=== PATIENT | male | born 1970 | race Caucasian/White ===

== ENCOUNTER 2022-11-03 09:51 | Outpatient (CLI) | payer OTHER, SELFPAY ==
--- NOTE | 2022-11-24 18:52 | WPDHOMESLEEP ---
Sleep Study - Home Unattended Date of Study: 11/03/22 Ordering Provider: Luis Carlos Funez PA-C Interpreting Provider: Verna Yeung, DO Home Sleep Study Type: Watch PAT Height: 1.91 m Weight: 149.685 kg Body Mass Index: 41.2 Neck Circumference (inches): 18.25 [place]: 13 Reason for Sleep Study Daytime hypersomnia, witnessed apneas and loud snoring. Sleep History The patient is a 51-year-old male with hypertension that had a sleep study ordered by his primary care for evaluation of sleep apnea. The patient is occasionally from sleep short of breath. He rarely awakens at night with heartburn, belching or cough. He constantly snores and is frequently loud enough that others complain. He occasionally has trouble sleeping when he has cold. He occasionally wakes up gasping for air throughout the night. He frequently has breathing problems at night observed by himself or others. He occasionally sweats excessively at night. He denies having heart palpitations or irregular heartbeats during the night. He occasionally falls asleep during the day and rarely falls asleep while driving. He denies sleep paralysis and cataplexy. the patient denies having trouble at school or work due to sleepiness. He rarely experiences vivid dreamlike scenes upon awakening or falling asleep. He denies feeling afraid of going to sleep. He rarely has nightmares. He rarely remembers his dreams. He rarely has thoughts racing through his mind. He denies feeling sad or depressed. He rarely has anxiety. He occasionally has muscular tension. He occasionally notices parts of his body jerk. He rarely kicks during the night. He occasionally has crawling and aching feelings in his legs and occasionally has leg pain during the night. He denies grinding his teeth during sleep denies awakening with morning jaw pain. He is rarely bothered by pain during the day and rarely awakened by pain during the night. He occasionally wakes up feeling stiff in the morning. He denies waking up with sore achy muscles. He rarely wakes up with pain in the neck, spine or other joints. He goes to bed between 10-11 p.m. on both weekdays and weekends. He is able to fall asleep within 15 minutes. He wakes up 2-3 times throughout the night to urinate. He is able to fall back asleep within a few minutes. He wakes up between 5-6 a.m. on weekdays and between 7-8 a.m. on the weekends. He typically gets 47 hours of sleep per night. He will stay in bed for 30 minutes to an hour after waking up in the morning. He currently lives with his and daughter. He does not consume any caffeinated beverages within 2 hours of bedtime. He does not engage in physical exercise before bedtime. He denies watching television before falling asleep. He denies taking naps in the afternoon or the evening. He drinks 2 cups of caffeinated beverage per day. He will drink 1 alcoholic beverage at most per week. He denies tobacco use. [facility] Past Medical History Medical History Essential hypertension Social History Social History Smoking status: Never smoker Second hand tobacco smoke exposure: No Alcohol intake: never Substance use: never Lack of Transportation: No Lack of Food: Never True Current Housing: I Have Housing Concerned About Future Housing: No Difficulty Paying Gas/Electric Bills: No Difficulty Paying for Meds: No Currently Unemployed: No Education: Bachelor's Degree Difficulty w/ Childcare or Family Care: No Medications Home Medications Medication Instructions Recorded Confirmed Type lisinopril 20 2 tablet PO DAILY #180 tabs 05/24/22 10/12/22 Rx mg-hydrochlorothiazide 12.5 mg tablet fluticasone 100 mcg-salmeterol 50 1 inh inhalation Q12H #60 ea 11/07/22 Rx mcg/dose blistr powdr for inhalation (Advair Diskus) Sle
[2022-11-24 19:07] VITALS: BMI 41.2
--- NOTE | 2023-01-13 10:32 | SLEEP ---
new calls [phone]
== END 2022-11-08 16:07 | disposition home or self-care (01) ==
PROVIDERS: PCP Physician Assistant; Visit Provider Physician Assistant
DX: G47.10 Hypersomnia, unspecified (principal); G47.33 Obstructive sleep apnea (adult) (pediatric)
CPT/HCPCS: 95800

== ENCOUNTER 2022-12-06 08:14 | Outpatient (CLI) | payer OTHER, SELFPAY ==
--- NOTE | 2022-12-27 16:02 | WPDSLEEPSTUD ---
Sleep Study Date of Study: 12/06/22 Ordering Provider: Luis Carlos Funez PA-C Interpreting Physician: Verna Yeung, DO Sleep Study Type: BiPAP Titration Height: 1.91 m Weight: 149.685 kg Body Mass Index: 41.2 Neck Circumference (inches): 19 [place]: 13 Reason for Sleep Study The patient had an HSAT on 11/03/2022 that showed an AHI of 98.8 with desaturation down to 61%. Recommended to have a PAP Titration study. Sleep History The patient is a 52-year-old male with hypertension that had a sleep study ordered by his primary care for evaluation of sleep apnea.? The patient is occasionally from sleep short of breath.? He rarely awakens at night with heartburn, belching or cough.? He constantly snores and is frequently loud enough that others complain.? He occasionally has trouble sleeping when he has cold.? He occasionally wakes up gasping for air throughout the night.? He frequently has breathing problems at night observed by himself or others.? He occasionally sweats excessively at night.? He denies having heart palpitations or irregular heartbeats during the night.? He occasionally falls asleep during the day and rarely falls asleep while driving.? He denies sleep paralysis and cataplexy. the patient denies having trouble at school or work due to sleepiness.? He rarely experiences vivid dreamlike scenes upon awakening or falling asleep.? He denies feeling afraid of going to sleep.? He rarely has nightmares.? He rarely remembers his dreams.? He rarely has thoughts racing through his mind.? He denies feeling sad or depressed.? He rarely has anxiety.? He occasionally has muscular tension.? He occasionally notices parts of his body jerk.? He rarely kicks during the night.? He occasionally has crawling and aching feelings in his legs and occasionally has leg pain during the night.? He denies grinding his teeth during sleep denies awakening with morning jaw pain.? He is rarely bothered by pain during the day and rarely awakened by pain during the night.? He occasionally wakes up feeling stiff in the morning.? He denies waking up with sore achy muscles.? He rarely wakes up with pain in the neck, spine or other joints.? He goes to bed between 10-11 p.m. on both weekdays and weekends.? He is able to fall asleep within 15 minutes.? He wakes up 2-3 times throughout the night to urinate.? He is able to fall back asleep within a few minutes.? He wakes up between 5-6 a.m. on weekdays and between 7-8 a.m. on the weekends.? He typically gets 47 hours of sleep per night.? He will stay in bed for 30 minutes to an hour after waking up in the morning.? He currently lives with his and daughter.? He does not consume any caffeinated beverages within 2 hours of bedtime.? He does not engage in physical exercise before bedtime.? He denies watching television before falling asleep.? He denies taking naps in the afternoon or the evening.? He drinks 2 cups of caffeinated beverage per day.? He will drink 1 alcoholic beverage at most per week.? He denies tobacco use. [facility] Past Medical History Medical History Essential hypertension Social History Social History Smoking status: Never smoker Second hand tobacco smoke exposure: No Alcohol intake: never Substance use: never Lack of Transportation: No Lack of Food: Never True Current Housing: I Have Housing Concerned About Future Housing: No Difficulty Paying Gas/Electric Bills: No Difficulty Paying for Meds: No Currently Unemployed: No Education: Bachelor's Degree Difficulty w/ Childcare or Family Care: No Medications Home Medications Medication Instructions Recorded Confirmed Type lisinopril 20 2 tablet PO DAILY #180 tabs 05/24/22 10/12/22 Rx mg-hydrochlorothiazide 12.5 mg tablet fluticasone 100 mcg-salmeterol 50 1 inh inhalation Q12H #60 ea 11/07/22 Rx mcg/dose bl
[2022-12-27 16:16] VITALS: BMI 41.2
== END 2022-12-07 06:53 | disposition home or self-care (01) ==
LOC: ANHCSM 08:16
PROVIDERS: PCP Physician Assistant; Visit Provider Physician Assistant
DX: G47.33 Obstructive sleep apnea (adult) (pediatric) (principal)
CPT/HCPCS: 95811

== ENCOUNTER → 2023-10-13 08:16 | Outpatient (CLI) | payer OTHER, SELFPAY ==
--- NOTE | ~2023-10-13 | CT_ITS ---
EXAMINATION: CT abdomen pelvis w con INDICATION: Right-sided flank pain TECHNIQUE: Computed tomographic images of the abdomen and pelvis were obtained after the administrati on of 100 cc of Omnipaque 350 intravenous contrast. The dose-length product (DLP) was 1219.38 mGy-cm. Automated exposure control and iterative reconstruction technique were employed. COMPARISON: None available FINDINGS: Minimal dependent atelectasis is present in the lung bases. The heart size is normal. The l iver is diffusely low in attenuation when compared with the spleen, consistent with hepatic steatosis . The spleen, pancreas, gallbladder, and adrenal glands are normal. There is a 7 mm stone in the righ t renal pelvis. The left kidney is unremarkable. No pathologically enlarged abdominal or pelvic lymph nodes are identified. No free intraperitoneal gas or evidence of bowel obstruction. Colonic divertic ulosis is present without evidence of diverticulitis. The appendix is normal. There is a 3.8 cm fluid density area in the subcutaneous tissues of the right flank, likely a sebaceous cyst. A compression fracture of L2 is noted. IMPRESSION: 1. 7 mm stone in the right renal pelvis. 2. Diffuse hepatic steatosis. Reviewed, dictated and finalized at location B. OPERATOR INSULATOR
[2023-10-13 08:35] LABS: Estimated Glomerular Filt Rate > 60
== END ==
PROVIDERS: PCP Physician Assistant; Visit Provider Physician Assistant
DX: N20.0 Calculus of kidney (principal); K76.0 Fatty (change of) liver, not elsewhere classified; G89.29 Other chronic pain
CPT/HCPCS: 74177; Q9967

== ENCOUNTER → 2023-12-07 07:24 | Outpatient (CLI) | payer OTHER, SELFPAY ==
--- NOTE | ~2023-12-07 | XR_ITS ---
EXAMINATION: XR abdomen/kub 1V INDICATION: Right-sided kidney stone TECHNIQUE: Supine views of the abdomen were obtained on 2 radiographs. COMPARISON: 10/13/2023 FINDINGS: An 8 mm stone projects in the right renal pelvis. No additional urolithiasis is identified. There is a phlebolith of the right pelvis. The bowel gas pattern is normal. IMPRESSION: 1. A millimeter stone of the right renal pelvis. Reviewed, dictated and finalized at location L. TOLOGIST
== END ==
DX: N20.0 Calculus of kidney (principal)
CPT/HCPCS: 74018

== ENCOUNTER 2024-02-13 07:48 | Outpatient (CLI) | payer OTHER, SELFPAY ==
--- NOTE | ~2024-02-13 | XR_ITS ---
XR abdomen/kub 1V 02/13/2024 08:03 INDICATION: Kidney stone TECHNIQUE: KUB COMPARISON: None FINDINGS: Bowel gas pattern is normal. There is no evidence of free air, mass, organomegaly, ascites or obstruction. There is a right renal stone which is obscured by bowel content. The bones appear in tact. IMPRESSION: 1: Right nephrolithiasis. Reviewed, dictated and finalized at location B. IMPRESSION: 1: Right nephrolithiasis.
== END 2024-02-13 07:49 ==
PROVIDERS: PCP Internal Medicine; Visit Provider Urology
DX: N20.0 Calculus of kidney (principal)
CPT/HCPCS: 74018

== ENCOUNTER 2024-06-12 01:13 | Day surgery (SDC) | payer OTHER, SELFPAY ==
[2024-06-05 10:36] VITALS: BMI 42.3
--- NOTE | 2024-06-05 10:43 | SUR.PREOP ---
Report to the Outpatient Waiting Room, entrance under the green pavilion located off [facility], at time 6:30a.m on date 06/12/2024. Planned Procedure Time: 8:30a.m. Time changes happen often and if your time is changed the preop area will call you the afternoon before. - You and your visitor will be asked to self-screen and do not enter if you have any COVID symptoms. - A mask is optional within the hospital at this time. Patients may have clear liquids (water, carbonated beverages, clear teas, apple juice) until 3 hours prior to surgery with a maximum of 20 ounces. - No food from midnight until time of surgery - Infants may have breast milk until 4 hours before surgery, infant formula 6 hours prior to surgery. - Children will be allowed to drink immediately following surgery. If applicable, please bring a bottle or sippy cup to assist with drinking. Juice, water, soda, and popsicles are readily available. For infants on formula, please bring formula the day of surgery. Pacifiers are allowed. Take the following medications with a SIP of water the morning of surgery: N/A DO NOT STOP ANY OF YOUR OTHER PRESCRIPTION MEDICATIONS PRIOR TO SURGERY ?EXCEPT THE FOLLOWING Medications to discontinue per physician n/a Date to take last dose n/a Please no make-up, nail estonian, hairspray, perfume, deodorant, or body powder the day of surgery. No jewelry (including any body piercings) or valuables the day of surgery, leave them at home. Please take a shower or bath the night before, or the morning of, surgery with an antibacterial soap. Wear comfortable, loose fitting clothing. Children are encouraged to wear pajamas. - Jewelry must be removed prior to entering the operating room. Rings and piercings that are not removed may be cut off. - The hospital will not accept responsibility for valuables. - Please leave all valuables, including medications, at home the day of surgery. If you are going home after surgery, a licensed transit driver must drive you home. - NO public transportation without another adult if you receive anesthesia. - We recommend that an adult stay with you for 24 hours following discharge. - We also recommend that you do not drive, make important decision, drink alcoholic beverages, or take any drugs that were not prescribed by your health care provider for at least 24 hours after your discharge time. For Pediatric surgeries, we recommend two adults accompany the child home. Follow any additional instructions given to you from your surgeon. If you or anyone in your household have experienced Covid symptoms in the past week, please notify your surgeon or the nurse liaison at the phone number below for possible testing. Telephone instructions given to Landry Schulz and asked if any additional questions and then verbalized understanding. Patient advised to call surgeon office or pre surgery nurse liaison [phone] if any additional questions.
[2024-06-12] VITALS (7 sets, daily range): BP systolic 119–144; BP diastolic 76–89; PULSE 75–110; RESP 14–18; TEMP 36.5–36.6; O2SAT 94–100
--- NOTE | 2024-06-12 07:14 | WPDANESEPPF ---
Anes - Initial Pre Proc Eval Procedure: Operation Date: 06/12/24 08:30 Proposed Procedures p Excision Skin Cyst of Back - Francisco Valdes MD Date/Time: 06/12/24 07:14 Surgeon: Francisco Valdes MD Pre Op Diagnosis: Skin Cyst on Back 4 cm Patient Data Age: 53 Gender: M Height: 1.88 m Weight: 149.69 kg Allergies Allergy/AdvReac Type Severity Reaction Status Date / Time No Known Allergies Allergy Mild Verified 06/12/24 07:10 Home Medications Medication Instructions Recorded Confirmed Type lisinopril 20 2 tablet PO DAILY #180 tabs 05/20/24 06/12/24 Rx mg-hydrochlorothiazide 12.5 mg tablet Patient hx anesthesia problems: none Family hx anesthesia problems: none Results Review: All pre-operative results and documents have been reviewed as part of the pre-operative evaluation. [facility] Past Medical History Medical History Essential hypertension Surgical History Surgical History History of kidney surgery hx of kidney stone removal - 2023 Social History Social History Smoking status: Never smoker Second hand tobacco smoke exposure: No Alcohol intake: current Drinks per week: 1 Alcohol use details: ocassional Substance use: never Lack of Transportation: No Lack of Food: Never True Current Housing: I Have Housing Concerned About Future Housing: No Difficulty Paying Gas/Electric Bills: No Difficulty Paying for Meds: No Currently Unemployed: No Education: Bachelor's Degree Difficulty w/ Childcare or Family Care: No Living arrangements: with family Anes - Eval Final PreProcedure Day of Procedure 06/12/24 07:14 Patient weight: morbidly obese Heart: regular rate and rhythm Lungs: clear to auscultation Airway: Mallampati scale Neurological: alert and oriented Last oral intake: >/= 8 hours ASA classification: III Emergent: no Anesthetic plan: proceed Anesthesia type and monitoring: general Results Review: All pre-operative results and documents have been reviewed as part of the pre-operative evaluation. HTN, morbid obesity, CHARLI on CPAP. Informed Consent: The patient's anesthetic plan and its attendant risks and benefits were discussed with the patient/family/POA. Questions were solicited and answers provided to the satisfaction of the patient/family/POA.
[2024-06-12] MEDS: LACTATED RINGERS 1,000 ML 30 ML IV CONT (07:20)
[2024-06-12 07:42] LABS: Anion Gap 7 mmol/L (4-12); Blood Urea Nitrogen 19 mg/dL (9-20); Carbon Dioxide 30 mmol/L (22-30); Chloride 101 mmol/L (98-107); Estimated CRCL calculation 147 ml/min; Estimated Glomerular Filt Rate > 60; Glucose 120 mg/dL (65-110); Potassium 3.9 mmol/L (3.4-5.0); Sodium 138 mmol/L (137-145)
--- NOTE | 2024-06-12 08:02 | WPDHPUPDATE1 ---
History and Physical Update Update Date/Time: 06/12/24 08:02 History and Physical has been reviewed, including an updated exam of the patient. There are NO changes in the patient's condition. Risks, benefits, and alternatives have been discussed and questions answered. Patient agrees to proceed with procedure.
[2024-06-12] MEDS: BUPIVACAINE/EPINEPHRINE 0.5% 10 ML VIAL 50 ML INFILTRATE (08:38)
[2024-06-12] MEDS: ceFAZolin 3 GM/D5W 100 ML 100 ML IVPB (08:38)
--- NOTE | 2024-06-12 09:33 | P.OP_ITS ---
Procedure Note - Detailed Date of Procedure 06/12/24 Pre-op Diagnosis Skin Cyst on Back 4 cm Post-op Diagnosis Other (Skin cyst of the back, 5 cm) Procedure Performed Excision 5 cm skin cyst of the back with 1 mm margins, 5.2 cm excision. 15 cm layered closure Surgeon Francisco Valdes MD Veter[employer] Teacher Jennifer Gr [facility] Anesthesia General and Local Indications Patient has a large cyst on his back which was previously infected but responded antibiotics. He is taken to surgery now for excision. Findings Large inclusion cyst Description of Procedure Patient was taken to surgery and induced into general anesthesia. He was then turned onto the operating table in a prone position. The area around the cyst was shaved with clippers. Prep and drape was then carried out. A transversely oriented ellipse that would allow excision of the entire cyst with the overlying skin was drawn. Local was infiltrated in the area of the anticipated incision and in the deeper subcutaneous tissues. Incision was made and dissection was carried down through the skin. Cautery was used for hemostasis. Additional dissection was then done in the superficial subcutaneous both medial and lateral to the cyst. Placing traction on the overlying skin, careful dissection was then used to dissect around the cyst without entering the cyst substance. The cyst was dissected out completely. A 1 mm margin of subcutaneous fat was maintained. The cyst was then measured and was 5 cm in greatest dimension. The defect was measured and was 15 cm in length. Cautery was used for hemostasis. Cesar's fascia was then closed with interrupted 3-0 Vicryl suture. Subcuticular interrupted 4-0 Vicryl skin sutures were then placed. Finally, a running 4-0 Monocryl skin suture was placed. Wound was dressed with Exofin surgical adhesive. Patient was then returned to a supine position. He was awakened and extubated. He then transferred to recovery in good condition. Sponge and needle counts were correct x2. Estimated Blood Loss -5 Drains No Packing No Pathology Yes (Skin cyst of the back) Complications None Condition Stable Disposition PACU [facility] Billing Surgery - Charge Forward: Surgery Billing (Excision 5 cm skin cyst of the back with 1 mm margins, 5.2 cm excision. 15 cm layered closure.)
== END 2024-06-12 11:19 | disposition home or self-care (01) ==
PROVIDERS: PCP Internal Medicine; Visit Provider Surgery
PROC: (CPT 11406; principal; 2024-06-12 08:30)
DX: L72.0 Epidermal cyst (principal); I10 Essential (primary) hypertension; E66.01 Morbid (severe) obesity due to excess calories; Z68.41 Body mass index [BMI] 40.0-44.9, adult
CPT/HCPCS: 11406; 12035; 36415; 80048; 88305; J0330; J0690; J1100; J2250; J2405; J2704; J3010; J7120

== ENCOUNTER 2025-03-13 02:20 | Day surgery (SDC) | payer OTHER, SELFPAY ==
[2025-03-03 13:18] VITALS: BMI 43.8
[2025-03-13 10:49] VITALS: BP 137/89; PULSE 90; RESP 18; TEMP 36.4; O2SAT 97; BMI 42.7
[2025-03-13] MEDS: LACTATED RINGERS 1,000 ML 150 ML IV CONT (11:02)
--- NOTE | 2025-03-13 11:15 | WPDANESEPPF ---
Anes - Initial Pre Proc Eval Procedure: Operation Date: 03/13/25 12:30 Proposed Procedures p Screening Colonoscopy - Mckinley Pizarro MD Date/Time: 03/13/25 11:15 Surgeon: Mckinley Pizarro MD Pre Op Diagnosis: Screening for colon, rectum, and prostate Patient Data Age: 54 Gender: M Height: 1.91 m Weight: 154.9 kg Last Vital Signs Temp 97.5 F L 03/13/25 10:49 Pulse 90 03/13/25 10:49 Resp 18 03/13/25 10:49 BP 137/89 03/13/25 10:49 Pulse Ox 97 03/13/25 10:49 O2 Del Method Room Air 03/13/25 10:49 Allergies Allergy/AdvReac Type Severity Reaction Status Date / Time No Known Allergies Allergy Mild Verified 03/13/25 10:55 Home Medications ?Medication ?Instructions ?Recorded ?Confirmed ?Type lisinopril 20 2 tablet PO DAILY #180 tabs 12/04/24 03/13/25 Rx mg-hydrochlorothiazide 12.5 mg tablet Patient hx anesthesia problems: none Family hx anesthesia problems: none Results Review: All pre-operative results and documents have been reviewed as part of the pre-operative evaluation. [facility] Past Medical History Medical History Essential hypertension Surgical History Surgical History History of excision of epidermal inclusion cyst 06/12/2024 - Excision 5 cm skin cyst of the back with 1 mm margins, 5.2 cm excision. 15 cm layered closure History of kidney surgery hx of kidney stone removal - 2023 Social History Social History Smoking status: Never smoker Second hand tobacco smoke exposure: No Alcohol intake: current Drinks per week: 1 Alcohol use details: ocassional Substance use: never Substance use type: does not use Lack of Transportation: No Lack of Food: Never True Current Housing: I Have Housing Concerned About Future Housing: No Difficulty Paying Gas/Electric Bills: No Difficulty Paying for Meds: No Currently Unemployed: No Education: Bachelor's Degree Difficulty w/ Childcare or Family Care: No Living arrangements: with family Spiritual care concerns: No Anes - Eval Final PreProcedure Day of Procedure 03/13/25 11:15 Patient weight: morbidly obese Heart: regular rate and rhythm Lungs: clear to auscultation Airway: Mallampati scale class II Neurological: alert and oriented Last oral intake: >/= 8 hours ASA classification: III Emergent: no Anesthetic plan: proceed Anesthesia type and monitoring: general GIVS and standard monitoring Results Review: All pre-operative results and documents have been reviewed as part of the pre-operative evaluation. Informed Consent: The patient's anesthetic plan and its attendant risks and benefits were discussed with the patient/family/POA. Questions were solicited and answers provided to the satisfaction of the patient/family/POA.
--- NOTE | 2025-03-13 11:17 | P.HP_ITS ---
H&P: HPI History of Present Illness Date/Time: 03/13/25 11:17 Chief Complaint: Screening colonoscopy Narrative: This is the patient's first colonoscopy. There are no GI symptoms and there is no family history of colorectal cancer. Review of Systems Review of Systems: All systems reviewed & are unremarkable except as noted in HPI and below [facility] Past Medical History Medical History Essential hypertension Surgical History Surgical History History of excision of epidermal inclusion cyst 06/12/2024 - Excision 5 cm skin cyst of the back with 1 mm margins, 5.2 cm excision. 15 cm layered closure History of kidney surgery hx of kidney stone removal - 2023 Social History Social History Smoking status: Never smoker Second hand tobacco smoke exposure: No Alcohol intake: current Drinks per week: 1 Alcohol use details: ocassional Substance use: never Substance use type: does not use Lack of Transportation: No Lack of Food: Never True Current Housing: I Have Housing Concerned About Future Housing: No Difficulty Paying Gas/Electric Bills: No Difficulty Paying for Meds: No Currently Unemployed: No Education: Bachelor's Degree Difficulty w/ Childcare or Family Care: No Living arrangements: with family Spiritual care concerns: No Meds Home Medications and Allergies Home Medications ?Medication ?Instructions ?Recorded ?Confirmed ?Type lisinopril 20 2 tablet PO DAILY #180 tabs 12/04/24 03/13/25 Rx mg-hydrochlorothiazide 12.5 mg tablet Allergies Allergy/AdvReac Type Severity Reaction Status Date / Time No Known Allergies Allergy Mild Verified 03/13/25 10:55 Vital Signs Vital Signs - 24 hr 03/13/25 10:49 Temperature 97.5 F L Pulse Rate 90 Respiratory Rate 18 Blood Pressure 137/89 Pulse Oximetry 97 Oxygen Delivery Room Air Exam Const: General: cooperative and healthy appearing Resp: Effort & Inspection: normal respiratory effort and able to speak in complete sentences Auscultation: clear to auscultation bilaterally Cardio: Rate: regular rate Rhythm: regular rhythm GI: Inspection: normal to inspection GI Palp: No No hepatosplenomegaly present Auscultation: normal bowel sounds Rectal Exam: deferred Skin: General skin exam: normal color Psych: Appearance: grossly normal Mental Status: mental status grossly normal Assessment and Plan Assessment and plan (1) Screening for colorectal cancer: Code(s): Z12.11 - Encounter for screening for malignant neoplasm of colon; Z12.12 - Encounter for screening for malignant neoplasm of rectum Status: Acute Assessment and Plan: The patient is deemed a good candidate for the procedure. Consent signed. Will proceed.
[2025-03-13 11:41] VITALS: BP 93/57; PULSE 104; RESP 20; O2SAT 99
[2025-03-13 11:51] VITALS: BP 110/64; PULSE 91; RESP 20; O2SAT 99
[2025-03-13 12:01] VITALS: BP 107/70; PULSE 82; RESP 20; O2SAT 99
--- NOTE | 2025-03-13 12:27 | P.HP_ITS ---
<Statement entered by Mckinley Pizarro MD - 03/13/25 15:10> See prior note H&P: HPI History of Present Illness Date/Time: 03/13/25 12:27 Chief Complaint: See prior note PMFSH Past Medical History Medical History Essential hypertension Surgical History Surgical History History of excision of epidermal inclusion cyst 06/12/2024 - Excision 5 cm skin cyst of the back with 1 mm margins, 5.2 cm excision. 15 cm layered closure History of kidney surgery hx of kidney stone removal - 2023 Social History Social History Smoking status: Never smoker Second hand tobacco smoke exposure: No Alcohol intake: current Drinks per week: 1 Alcohol use details: ocassional Substance use: never Substance use type: does not use Lack of Transportation: No Lack of Food: Never True Current Housing: I Have Housing Concerned About Future Housing: No Difficulty Paying Gas/Electric Bills: No Difficulty Paying for Meds: No Currently Unemployed: No Education: Bachelor's Degree Difficulty w/ Childcare or Family Care: No Living arrangements: with family Spiritual care concerns: No Meds Home Medications and Allergies Home Medications ?Medication ?Instructions ?Recorded ?Confirmed ?Type lisinopril 20 2 tablet PO DAILY #180 tabs 12/04/24 03/13/25 Rx mg-hydrochlorothiazide 12.5 mg tablet Allergies Allergy/AdvReac Type Severity Reaction Status Date / Time No Known Allergies Allergy Mild Verified 03/13/25 10:55 Vital Signs Vital Signs - 24 hr 03/13/25 10:49 03/13/25 11:41 03/13/25 11:51 Temperature 97.5 F L Pulse Rate 90 104 H 91 Respiratory Rate 18 20 20 Blood Pressure 137/89 93/57 L 110/64 Pulse Oximetry 97 99 99 Oxygen Delivery Room Air Room Air Room Air 03/13/25 12:01 Temperature Pulse Rate 82 Respiratory Rate 20 Blood Pressure 107/70 Pulse Oximetry 99 Oxygen Delivery Room Air
== END 2025-03-13 12:08 | disposition home or self-care (01) ==
PROVIDERS: PCP Internal Medicine; Referring Provider Internal Medicine; Visit Provider Internal Medicine Gastroenterology
PROC: 0DJD8ZZ Inspection of Lower Intestinal Tract, Via Natural or Artificial Opening Endoscopic (ICD-10-PCS; CPT 45378; principal; 2025-03-13 12:30)
DX: Z12.11 Encounter for screening for malignant neoplasm of colon (principal); K57.30 Diverticulosis of large intestine without perforation or abscess without bleeding; K64.4 Residual hemorrhoidal skin tags; E66.01 Morbid (severe) obesity due to excess calories; Z68.41 Body mass index [BMI] 40.0-44.9, adult
CPT/HCPCS: 45378; J2003; J2704; J7120